=== PATIENT | female | born 1985 | race Caucasian/White ===

== ENCOUNTER 2024-12-23 13:53 | Emergency (ER) | payer BC, SELFPAY ==
--- NOTE | ~2024-12-23 | XR_ITS ---
HISTORY: Abrasion/pain med Rt ankle, dropped countertop on ankle COMPARISON: None TECHNIQUE: 3 views of the right ankle were performed FINDINGS: No acute fracture or dislocation. Moderate anterior soft tissue swelling. The ankle mortise is preserved. Bone mineralization is age-appropriate. Calcaneal spur is noted. IMPRESSION: Degenerative disease and soft tissue swelling, without acute fracture. Reviewed, dictated and finalized at location A. IMPRESSION: Degenerative disease and soft tissue swelling, without acute fract ure.
[2024-12-23 14:06] VITALS: BP 132/89; PULSE 75; RESP 18; TEMP 36.6; O2SAT 100
--- NOTE | 2024-12-23 14:17 | ED_ITS ---
HPI - Extremity Injury (Lower) General Chief Complaint: Extremity Injury, Lower Stated Complaint: R ankle Time Seen by Provider: 12/23/24 14:16 Source: patient Mode of arrival: ambulatory Limitations: no limitations History of Present Illness HPI Narrative: Patient presents today complaining pain to the right ankle. She was moving a countertop on Monday when it fell, and hit her right ankle. Patient states t hat the pain is not bad enough to have to take any [id number] medications. No numbness, tingling, or radiation noted. Related Data Home Medications ?Medication ?Instructions ?Recorded ?Confirmed ?Last Taken ?Type atorvastatin 20 mg tablet mg 12/23/24 Unknown History fluoxetine 20 mg capsule mg 12/23/24 Unknown History propranolol 20 mg tablet mg 12/23/24 Unknown History Allergies Allergy/AdvReac Type Severity Reaction Status Date / Time No Known Allergies Allergy Verified 12/23/24 14:14 Review of Systems Review of Systems: CONSTITUTIONAL: Denies body aches, fever, chills, or sweats. EYES: Denies visual changes, redness, or discharge. ENT: Denies rhinorrhea, congestion, sore throat, or otalgia. CARDIOVASCULAR: Denies chest pain, palpitations, or edema. RESPIRATORY: Denies cough or dyspnea. GASTROINTESTINAL: Denies abdominal pain, nausea, vomiting, or diarrhea. GENITOURINARY: Denies dysuria or hematuria. SKIN: Denies rash, itching, or wounds. MUSCULOSKELETAL: Reports pain and edema to right ankle. NEUROLOGIC: Denies headache, numbness, tingling, or weakness. PSYCH: Denies depression or anxiety. All systems reviewed & are unremarkable except as noted in HPI and below Exam Narrative: MUSCULOSKELETAL EXAM GENERAL: Well-appearing, well-nourished, and in no acute distress. HEAD: Normocephalic, atraumatic. NECK: Supple. CHEST: Speaks in full sentences. No respiratory distress. HEART: Regular rate and rhythm. Normal and equal peripheral pulses. EXTREMITIES: Right ankle has normal strength and sensation, normal range of motion with flexion/extension/rotation, but endorses pain with movement. edema, point tenderness, and abrasion <0.5cm to medial ankle noted. No open wounds, skin tenting, or obvious deformity; alignment normal, pulse palpable and equal bilaterally, skin warm, dry, pink. Capillary refill less than 3 seconds. SKIN: Warm, dry, no rash. NEURO: Alert and oriented x3. PSYCH: Normal mood and affect Course Course Level of Care: Express Care Visit Vital Signs Vital signs: Vital Signs Temperature 97.9 F 12/23/24 14:06 Pulse Rate 75 12/23/24 14:06 Respiratory Rate 18 12/23/24 14:06 Blood Pressure 132/89 12/23/24 14:06 Pulse Oximetry 100 12/23/24 14:06 Oxygen Delivery Room Air 12/23/24 14:06 Temperature 97.9 F 12/23/24 14:06 Pulse Rate 75 12/23/24 14:06 Respiratory Rate 18 12/23/24 14:06 Blood Pressure 132/89 12/23/24 14:06 Pulse Oximetry 100 12/23/24 14:06 Oxygen Delivery Room Air 12/23/24 14:06 reviewed. MDM - Extremity Injury (Lower) MDM Narrative Medical decision making narrative: Discussed physical exam findings and xray. Advised supportive measures and signs/symptoms to go to the ER. Pt is appropriate for outpt treatment and f/u. Differential Diagnosis Differential diagnosis: Likely ankle sprain and strain, ankle fracture and other (contusion of right ankle) Imaging Data Radiologist's impression: Patient: Carolina Little : 1985 MR#: [id number] Age: 39 Acct:[id number] Loc: [facility] ADM Date: 12/23/24Attending Dr: Ordering Physician: Arline Courtney APRN Date of Service: 12/23/24 Procedure(s): XR ankle RT min 3V Accession Number(s): [id number] cc: Arline Corutney APRN; Yadiel Muller MD~ HISTORY: Abrasion/pain med Rt ankle, dropped countertop on ankle COMPARISON: None TECHNIQUE: 3 views of the right ankle were performed FINDINGS: No acute fracture or dislocation. Moderate anterior soft tissue swelling. The ankle mortise is preserved. Bone mineralization is age-appropriate. Calcaneal spur is noted. IMPRESSION: Degenerative disease and soft tissue swelling, without acute fracture. Critical Care Time Critical Care Time Critical Care Time: No Discharge Plan Discharge Clinical Impression: Ankle contusion Patient Disposition: Home Condition: Stable Instructions: Foot Contusion (ED) Additional Instructions: Rest, ice and elevate the affected extremity. Motrin 600mg every 8 hours, as needed, for pain (take with food). Tylenol 1000mg every 8 hours. Go to the ER immediately for increased pain, tingling/numbness, swelling, redness, and fever. Patient Language: Macedonian Prescriptions: No Action atorvastatin 20 mg tablet propranolol 20 mg tablet fluoxetine 20 mg capsule Follow-up/Referrals: Yadiel Muller M.D. [Primary Care Provider] - Radu Lancaster MD [Physician] -
== END 2024-12-23 15:10 | disposition home or self-care (01) ==
PROVIDERS: PCP Family Medicine
DX: S90.01XA Contusion of right ankle, initial encounter (principal); W20.8XXA Other cause of strike by thrown, projected or falling object, initial encounter; M19.071 Primary osteoarthritis, right ankle and foot; M79.89 Other specified soft tissue disorders
CPT/HCPCS: 73610; 99203; G0463

== ENCOUNTER 2025-04-02 10:09 | Emergency (ER) | payer OTHER, BC, SELFPAY ==
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
[2025-04-02 10:16] VITALS: BP 152/102; PULSE 73; RESP 16; TEMP 36.6; O2SAT 98
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
== END 2025-04-02 14:19 | disposition home or self-care (01) ==
LOC: ANHED 12:45
PROVIDERS: Emergency Provider Emergency Medicine; PCP Family Medicine
DX: S46.911A Strain of unspecified muscle, fascia and tendon at shoulder and upper arm level, right arm, initial encounter (principal); V49.40XA Driver injured in collision with unspecified motor vehicles in traffic accident, initial encounter; W54.1XXA Struck by dog, initial encounter
CPT/HCPCS: 73030; 99283; A4565

== ENCOUNTER 2025-07-25 08:07 | Outpatient (RCR) | payer OTHER, SELFPAY ==
--- NOTE | 2025-07-25 10:12 | OPREHPOC ---
Outpatient Therapy Plan of Care This is a Multidisciplinary Plan of Care that may contain components documented by all disciplines (PT, OT, and ST.) PT Problem 1 PT Problem #1 Knowledge Deficit PT Goal 1 Goal / Goal Update Independent and compliant with HEP. Target Visit 2 PT Problem 2 PT Problem #2 Pain PT Goal 1 Goal / Goal Update Pt to report no worse than 2/10 R shoulder pain with activity. Target Visit 8 PT Problem 3 PT Problem #3 Impaired Strength PT Goal 1 Goal / Goal Update Pt to improve R shoulder ER/IR strength to 5/5 without pain. Target Visit 8 PT Problem 4 PT Problem #4 Impaired Range of Motion PT Goal 1 Goal / Goal Update Pt to improve R shoulder functional IR reach to T4 without pain. Target Visit 8 PT Problem 5 PT Problem #5 Impaired Functional Mobility PT Goal 1 Goal / Goal Update Pt to report 0% perceived disability on Quick DASH . Pt to report being able to boost patients up in bed and open doors at work without R shoulder pain . Target Visit 8
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
--- NOTE | 2025-08-22 09:12 | OPREHPOC ---
Outpatient Therapy Plan of Care This is a Multidisciplinary Plan of Care that may contain components documented by all disciplines (PT, OT, and ST.) PT Problem 1 PT Problem #1 Knowledge Deficit PT Goal 1 Goal / Goal Update Independent and compliant with HEP. Target Visit 2 Progress Met PT Problem 2 PT Problem #2 Pain PT Goal 1 Goal / Goal Update Pt to report no worse than 2/10 R shoulder pain with activity. Target Visit 8 Progress Met PT Problem 3 PT Problem #3 Impaired Strength PT Goal 1 Goal / Goal Update Pt to improve R shoulder ER/IR strength to 5/5 without pain. Target Visit 8 Progress Met PT Problem 4 PT Problem #4 Impaired Range of Motion PT Goal 1 Goal / Goal Update Pt to improve R shoulder functional IR reach to T4 without pain. Target Visit 8 Progress Met PT Problem 5 PT Problem #5 Impaired Functional Mobility PT Goal 1 Goal / Goal Update Pt to report 0% perceived disability on Quick DASH . 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 -met Target Visit 8 Progress Met
--- NOTE | 2025-08-22 09:13 | PTOPDC ---
Assessment and note entered by Leilani Townsend, PT Evaluation Information Assessment Status Discharge ICD-10 Condition Codes (PT) Pain in right shoulder M25.511 Other ICD-10 Condition Codes ( M75.41, S43.004A PT) Onset 03/11/25 Subjective Information Carolina reports her shoulder feels great and she has rarely had pain. She denies any pain recently in the shoulder when performing functional activities such as boosting pts up in bed and opening doors at work. She has continued all her exercises at home without difficulty. Reported Pain Level Pain Score 0: Self Report Assessment PT Clinical Summary Mrs. Little has attended 8 skilled PT visits addressing R shoulder pain. She has made excellent progress in PT and has met all therapeutic goals addressing R shoulder AROM, strength and functional use of the arm for occupational activities. She will be discharged this date with edu to continue home exercises addressing shoulder flexibility and RTC strengthening to maintain her progress. Plan of Care PT Services Indicated Yes
== END 2025-08-22 20:00 | disposition home or self-care (01) ==
LOC: CHSPT 08:07
PROVIDERS: Visit Provider Orthopaedic Surgery
DX: S43.004A Unspecified dislocation of right shoulder joint, initial encounter (principal); M75.41 Impingement syndrome of right shoulder; M25.511 Pain in right shoulder
CPT/HCPCS: 97110; 97112; 97150; 97161; 97530